=== PATIENT | female | born 1990 | race Caucasian/White ===

== ENCOUNTER 2017-11-18 17:58 | Emergency (ER) | payer BC ==
--- NOTE | 2017-11-18 18:34 | EDM.PDOC ---
<Hardik Stallings - Last Filed: 11/18/17 19:00> ED HPI GENERAL MEDICAL PROBLEM - General Stated Complaint: HI HEART RATE [id number] Time Seen by Provider: 11/18/17 18:20 Source of Information: Reports: Patient History Limitations: Reports: No Limitations - History of Present Illness INITIAL COMMENTS - FREE TEXT/NARRATIVE: This 27 yo female patient reports to the ED due to an episode of tachycardia. The patient reports she was wearing her apple watch and realized that her heartrate was 190. The patient reports when her heartrate was elevated she was also feeling lightheaded and a little dizzy. The patient reports she does have a history of anxiety with previous similar episodes in the past. The patient reports she was worked up for similar episodes while she was at [facility] in [place]. The patient reports she is also experiencing some heaviness in her left arm. The patient reports she does use caffeine, but has not had any recent nicotine, drugs or ETOH. Onset: Today Duration: Minutes:, Improving Location: Reports: Chest, Upper Extremity, Left Quality: Reports: Dull Severity: Moderate Worsens with: Reports: None Associated Symptoms: Reports: Other - Related Data Allergies Allergy/AdvReac Type Severity Reaction Status Date / Time amoxicillin trihydrate Allergy Intermediate Hyperactivi Verified 11/18/17 18:41 [From Augmentin] ty potassium clavulanate Allergy Hyperactivi Verified 11/18/17 18:41 [From Augmentin] ty coconut AdvReac Mild Nausea and Verified 11/18/17 18:41 Vomiting Home Meds: Home Meds Sulfamethoxazole/Trimethoprim [Sulfamethoxazole-Tmp Ds Tablet] 1 tab PO BID [History] Past Medical History HEENT History: Reports: None Cardiovascular History: Reports: None Respiratory History: Reports: None Gastrointestinal History: Reports: None Genitourinary History: Reports: None 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: , 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 Musculoskeletal History: Reports: None Neurological History: Reports: None Psychiatric History: Reports: Anxiety, PTSD Endocrine/Metabolic History: Reports: None Hematologic History: Reports: None Immunologic History: Reports: None Dermatologic History: Reports: None - Infectious Disease History Infectious Disease History: Reports: Chicken Pox - Past Surgical History HEENT Surgical History: Reports: Adenoidectomy, Tonsillectomy Social & Family History - Family History Family Medical History: Noncontributory - Tobacco Use Smoking Status *Q: Former Smoker Packs/Tins Daily: 0.1 Used Tobacco, but Quit: Yes Month Tobacco Last Used: n - Recreational Drug Use Recreational Drug Use: No ED ROS GENERAL - Review of Systems Review Of Systems: ROS reveals no pertinent complaints other than HPI. ED EXAM, GENERAL - Physical Exam Exam: See Below Exam Limited By: No Limitations General Appearance: Alert, WD/WN, Anxious, Mild Distress Eye Exam: Bilateral Eye: EOMI, Normal Inspection, PERRL Ears: Normal External Exam, Normal Canal, Hearing Grossly Normal, Normal TMs Nose: Normal Inspection, Normal Mucosa, No Blood Throat/Mouth: Normal Inspection, Normal Lips, Normal Teeth, Normal Gums, Normal Oropharynx, Normal Voice, No Airway Compromise Head: Atraumatic, Normocephalic Neck: Normal Inspection, Supple, Non-Tender, Full Range of Motion Respiratory/Chest: No Respiratory Distress, Lungs Clear, Normal Breath Sounds, No Accessory Muscle Use, Chest Non-Tender Cardiovascular: Normal Peripheral Pulses, Regular Rate, Rhythm, No Edema, No Gallop, No JVD, No Murmur, No Rub GI/Abdominal: Normal Bowel Sounds, Soft, Non-Tender, No Organomegaly, No Distention, No Abnormal Bruit, No Mass (Female) Exam: Deferred Rectal (Female) Exam: Deferred Back Exam: Normal Inspection, Full Range of Motion, NT Extremities: Normal Inspection, Normal Range of Motion, Non-Tender, Normal Capillary Refill, No Pedal Edema Neurological: Alert, Oriented, CN II-XII Intact, Normal Cognition, Normal Gait, Normal Reflexes, No Motor/Sensory Deficits Psychiatric: Anxious Skin Exam: Warm, Dry, Intact, Normal Color, No Rash Lymphatic: No Adenopathy Course - Vital Signs Last Recorded V/S: Last Vital Signs Temp 99.5 F 11/18/17 20:35 Pulse 82 11/18/17 20:35 Resp 20 11/18/17 20:35 BP 112/85 11/18/17 20:35 Pulse Ox 100 11/18/17 20:35 - Orders/Labs/Meds Orders: Active Orders 24 hr Category Date Time Status EKG Documentation Completion [RC] URGENT Care 11/18/17 18:00 Active Labs: Laboratory Tests 01/23/18 01/23/18 01/23/18 Range/Units 18:14 18:14 18:36 WBC 7.8 (5.0-10.0) 10^3/uL RBC 3.69 L (4.2-5.4) 10^6/uL Hgb 12.0 (12.0-16.0) g/dL Hct 33.6 L (37.0-47.0) % MCV 91.1 D (80-100) fL MCH 32.5 (27.0-34.0) pg MCHC 35.7 H (33.0-35.0) g/dL Plt Count 288 (150-450) 10^3/uL Neut % (Auto) 53.2 (42.2-75.2) % Lymph % (Auto) 37.8 (20.5-50.1) % [place] % (Auto) 6.8 (2-8) % Eos % (Auto) 1.9 (1.0-3.0) % Baso % (Auto) 0.3 (0.0-1.0) % Sodium 137 (135-145) mmol/L Potassium 2.7 L (3.6-5.0) mmol/L Chloride 108 (101-111) mmol/L Carbon Dioxide 22.0 (21.0-31.0) mmol/L Anion Gap 9.7 BUN 10 (7-18) mg/dL Creatinine 0.9 (0.6-1.3) mg/dL Est Cr Clr Drug Dosing TNP Estimated GFR (MDRD) > 60 BUN/Creatinine Ratio 11.11 Glucose 117 H (74-105) mg/dL Calcium 9.2 (8.4-10.2) mg/dl Total Bilirubin 0.6 (0.2-1.0) mg/dL AST 24 (10-42) IU/L ALT 18 (10-60) IU/L Alkaline Phosphatase 28 L (42-121) IU/L Troponin I < 0.02 (0.00-0.02) ng/ml Total Protein 7.9 (6.7-8.2) g/dl Albumin 4.9 (3.2-5.5) g/dl Globulin 3.0 Albumin/Globulin Ratio 1.63 Urine Color (YELLOW) Urine Appearance (CLEAR) Urine pH (5.0-9.0) Ur Specific [place] (1.005-1.030) Urine Protein (NEGATIVE) Urine Glucose (UA) (NEGATIVE) Urine Ketones (NEGATIVE) Urine Occult Blood (NEGATIVE) Urine Nitrite (NEGATIVE) Urine Bilirubin (NEGATIVE) Urine Urobilinogen (0.2-1.0) mg/dL Ur Leukocyte Esterase (NEGATIVE) Urine RBC /HPF Urine WBC (0-5/HPF) /HPF Ur Epithelial Cells /HPF Urine Bacteria (0-FEW/HPF) /HPF Urine Mucus /LPF Urine HCG, Qual Urine Opiates Screen Negative (NEGATIVE) Ur Oxycodone Screen Negative (NEGATIVE) Urine Methadone Screen Negative (NEGATIVE) Ur Barbiturates Screen Negative (NEGATIVE) U Tricyclic Antidepress Negative (NEGATIVE) Ur Phencyclidine Scrn Negative (NEGATIVE) Ur Amphetamine Screen Negative (NEGATIVE) U Methamphetamines Scrn Negative (NEGATIVE) Urine MDMA Screen Negative (NEGATIVE) U Benzodiazepines Scrn Positive H (NEGATIVE) Urine Cocaine Screen Negative (NEGATIVE) U Marijuana (THC) Screen Positive H (NEGATIVE) 11/18/17 11/18/17 Range/Units 18:36 18:36 WBC (5.0-10.0) 10^3/uL RBC (4.2-5.4) 10^6/uL Hgb (12.0-16.0) g/dL Hct (37.0-47.0) % MCV (80-100) fL MCH (27.0-34.0) pg MCHC (33.0-35.0) g/dL Plt Count (150-450) 10^3/uL Neut % (Auto) (42.2-75.2) % Lymph % (Auto) (20.5-50.1) % [place] % (Auto) (2-8) % Eos % (Auto) (1.0-3.0) % Baso % (Auto) (0.0-1.0) % Sodium (135-145) mmol/L Potassium (3.6-5.0) mmol/L Chloride (101-111) mmol/L Carbon Dioxide (21.0-31.0) mmol/L Anion Gap BUN (7-18) mg/dL Creatinine (0.6-1.3) mg/dL Est Cr Clr Drug Dosing Estimated GFR (MDRD) BUN/Creatinine Ratio Glucose (74-105) mg/dL Calcium (8.4-10.2) mg/dl Total Bilirubin (0.2-1.0) mg/dL AST (10-42) IU/L ALT (10-60) IU/L Alkaline Phosphatase (42-121) IU/L Troponin I (0.00-0.02) ng/ml Total Protein (6.7-8.2) g/dl Albumin (3.2-5.5) g/dl Globulin Albumin/Globulin Ratio Urine Color Yellow (YELLOW) Urine Appearance Clear (CLEAR) Urine pH 6.0 (5.0-9.0) Ur Specific [place] 1.015 (1.005-1.030) Urine Protein Negative (NEGATIVE) Urine Glucose (UA) Negative (NEGATIVE) Urine Ketones Trace H (NEGATIVE) Urine Occult Blood Negative (NEGATIVE) Urine Nitrite Negative (NEGATIVE) Urine Bilirubin Negative (NEGATIVE) Urine Urobilinogen 1.0 (0.2-1.0) mg/dL Ur Leukocyte Esterase Trace H (NEGATIVE) Urine RBC 0-5 /HPF Urine WBC 0-5 (0-5/HPF) /HPF Ur Epithelial Cells Rare /HPF Urine Bacteria Rare (0-FEW/HPF) /HPF Urine Mucus Rare /LPF Urine HCG, Qual Negative Urine Opiates Screen (NEGATIVE) Ur Oxycodone Screen (NEGATIVE) Urine Methadone Screen (NEGATIVE) Ur Barbiturates Screen (NEGATIVE) U Tricyclic Antidepress (NEGATIVE) Ur Phencyclidine Scrn (NEGATIVE) Ur Amphetamine Screen (NEGATIVE) U Methamphetamines Scrn (NEGATIVE) Urine MDMA Screen (NEGATIVE) U Benzodiazepines Scrn (NEGATIVE) Urine Cocaine Screen (NEGATIVE) U Marijuana (THC) Screen (NEGATIVE) Meds: Medications Discontinued Medications Generic Name Dose Route Start Last Admin Trade Name Omer PRN Reason Stop Dose Admin Potassium Chloride 10 meq/ 100 mls @ 100 mls/hr 11/18/17 18:42 11/18/17 19:18 Premix IV 11/18/17 19:41 100 mls/hr ONETIME ONE Administration Sodium Chloride 1,000 mls @ 999 mls/hr 11/18/17 19:09 11/18/17 19:18 Normal Saline IV 11/18/17 20:09 999 mls/hr .BOLUS ONE Administration Potassium Chloride 40 meq 11/18/17 18:43 11/18/17 19:16 Klor-Con 10 PO 11/18/17 18:44 40 meq ONETIME ONE Administration Departure - Departure Disposition: Home, Self-Care 01 Condition: Fair Clinical Impression: Hypokalemia, Palpitations Instructions: Hypokalemia, Palpitations, [id number] Forms: ED Department Discharge Care Plan Goals: The patient was advised of the examination, lab and EKG results during the visit. The patient was given an oral and IV dose of potassium while in the emergency department. The patient was encouraged to follow-up with her primary care facility. If the patient has any additional symptoms or concerns, the patient should either visit her primary care facility or return to the emergency department. <Alondra Cantu - Last Filed: 11/19/17 06:48> Departure - Departure Time of Disposition: 20:35
[2017-11-18 18:41] LABS: ANION GAP 9.7; CHLORIDE,CL 108 mmol/L (101-111); SODIUM,NA 137 mmol/L (135-145)
[2017-11-18] MEDS ORDERED: Potassium Chloride 10 MEQ in Premix Bag 1 BAG IV ONE (18:42)
[2017-11-18] MEDS ORDERED: Potassium Chloride 10 MEQ Tab.ER PO ONE (18:43)
[2017-11-18] MEDS ORDERED: Sodium Chloride 0.9% 1,000 ML IV ONE (19:09)
[2017-11-18 20:56] VITALS: BP 112/85
--- NOTE | 2017-12-15 10:49 | EKG ---
11/18/2017- GEOFFREY PHILLIPS M - EKG is sinus rhythm with a rate of 129. Normal VA interval, normal axis. There are nonspecific ST-T wave changes on the lateral leads. EKG otherwise within normal limits. [facility] /[id number]
== END 2017-11-18 20:38 | disposition home or self-care (01) ==
LOC: DL.ED 17:58
DX: E87.6 Hypokalemia (principal); R00.2 Palpitations; Z88.1 Allergy status to other antibiotic agents; Z88.8 Allergy status to other drugs, medicaments and biological substances; Z87.891 Personal history of nicotine dependence
CPT/HCPCS: 36415; 80053; 80305; 81001; 81025; 84484; 85025; 93005; 96365; 99284; A9270; J3480; J7030

== ENCOUNTER 2018-12-15 21:35 | Emergency (ER) | payer BC ==
[2018-12-15 21:43] VITALS: BP 132/92
[2018-12-15 22:33] LABS: ANION GAP 11.5; CHLORIDE,CL 102 mmol/L (101-111); SODIUM,NA 136 mmol/L (135-145)
--- NOTE | 2018-12-15 23:34 | EDM.PDOC ---
ED HPI GENERAL MEDICAL PROBLEM - General Chief Complaint: Chest Pain Stated Complaint: CHEST PAINS, LAYING DOWN-HEAVINESS Time Seen by Provider: 12/15/18 21:40 Source of Information: Reports: Patient History Limitations: Reports: No Limitations - History of Present Illness INITIAL COMMENTS - FREE TEXT/NARRATIVE: ED with c/o left side chest pain since Friday, worse with ovement and deep breathing, No injury. Occasional cough. Non smoker, No hx of asthma. No fever or chills. States initially thought related to anxiety or GERD. Has been taking anxiety medication and zantac without relief. Was seen at clinic today and told pleurisy and started on Naproxyn. First dose at 1900, without improvement. Left Chest Pain Score (Numeric/FACES): 5 - Related Data Allergies Allergy/AdvReac Type Severity Reaction Status Date / Time amoxicillin trihydrate Allergy Intermediate Hyperactivi Verified 12/15/18 21:44 [From Augmentin] ty potassium clavulanate Allergy Hyperactivi Verified 12/15/18 21:44 [From Augmentin] ty coconut AdvReac Mild Nausea and Verified 12/15/18 21:44 Vomiting Home Meds: Home Meds LORazepam 1 mg PO ASDIRECTED PRN 12/15/18 [History] Past Medical History HEENT History: Reports: None Cardiovascular History: Reports: None Respiratory History: Reports: None Gastrointestinal History: Reports: GERD Genitourinary History: Reports: None 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: , 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 Musculoskeletal History: Reports: None Neurological History: Reports: None Psychiatric History: Reports: Anxiety, PTSD Endocrine/Metabolic History: Reports: None Hematologic History: Reports: None Immunologic History: Reports: None Dermatologic History: Reports: None - Infectious Disease History Infectious Disease History: Reports: Chicken Pox - Past Surgical History HEENT Surgical History: Reports: Adenoidectomy, Tonsillectomy Social & Family History - Family History Family Medical History: Noncontributory - Tobacco Use Smoking Status *Q: Never Smoker Second Hand Smoke Exposure: No - Recreational Drug Use Recreational Drug Use: No ED ROS GENERAL - Review of Systems Review Of Systems: ROS reveals no pertinent complaints other than HPI. ED EXAM, GENERAL - Physical Exam Exam: See Below Exam Limited By: No Limitations General Appearance: Alert, Mild Distress Eye Exam: Bilateral Eye: EOMI, PERRL Ears: Hearing Grossly Normal Nose: Normal Inspection Throat/Mouth: Normal Inspection, Normal Lips, Normal Voice Neck: Normal Inspection, Full Range of Motion. No: Lymphadenopathy (L), Lymphadenopathy (R) Respiratory/Chest: Lungs Clear, Normal Breath Sounds, No Accessory Muscle Use, Other (left lateral chest tender with light palpation, mild left anterior). No : Rales, Rhonchi, Wheezing Cardiovascular: Normal Peripheral Pulses, Regular Rate, Rhythm GI/Abdominal: Normal Bowel Sounds, Soft Back Exam: Full Range of Motion Extremities: Normal Inspection Neurological: Alert, Oriented, Normal Cognition Psychiatric: Normal Affect, Anxious ([facility]) Skin Exam: Warm, Dry, Intact, Normal Color, No Rash EKG INTERPRETATION Rhythm: NSR Course - Vital Signs Last Recorded V/S: Last Vital Signs Temp 96.4 F 12/15/18 21:38 Pulse 93 12/15/18 21:38 Resp 18 12/15/18 21:38 BP 132/92 H 12/15/18 21:38 Pulse Ox 100 12/15/18 21:38 - Orders/Labs/Meds Orders: Active Orders 24 hr Category Date Time Status EKG 12 Lead [EKG Documentation Completion] [RC] STAT Care 12/15/18 21:48 Active CXR [Chest 2V] [CR] Urgent Exams 12/15/18 22:49 Taken Labs: Laboratory Tests 12/15/18 12/15/18 12/15/18 Range/Units 22:01 22:01 22:01 WBC 8.6 (5.0-10.0) 10^3/uL RBC 3.71 L (4.2-5.4) 10^6/uL Hgb 12.0 (12.0-16.0) g/dL Hct 34.7 L (37.0-47.0) % MCV 93.5 (80-100) fL MCH 32.3 (27.0-34.0) pg MCHC 34.6 (33.0-35.0) g/dL Plt Count 253 (150-450) 10^3/uL Neut % (Auto) 61.8 (42.2-75.2) % Lymph % (Auto) 28.7 (20.5-50.1) % [place] % (Auto) 6.5 (2-8) % Eos % (Auto) 2.8 (1.0-3.0) % Baso % (Auto) 0.2 (0.0-1.0) % Sodium 136 (135-145) mmol/L Potassium 3.5 L (3.6-5.0) mmol/L Chloride 102 (101-111) mmol/L Carbon Dioxide 26.0 (21.0-31.0) mmol/L Anion Gap 11.5 BUN 9 (7-18) mg/dL Creatinine 0.7 (0.6-1.3) mg/dL Est Cr Clr Drug Dosing 122.81 mL/min Estimated GFR (MDRD) > 60 BUN/Creatinine Ratio 12.85 Glucose 91 (74-105) mg/dL Calcium 8.8 (8.4-10.2) mg/dl Total Bilirubin 0.6 (0.2-1.0) mg/dL AST 25 (10-42) IU/L ALT 21 (10-60) IU/L Alkaline Phosphatase 29 L (42-121) IU/L Troponin I < 0.02 (0.00-0.02) ng/ml Total Protein 7.5 (6.7-8.2) g/dl Albumin 4.3 (3.2-5.5) g/dl Globulin 3.2 Albumin/Globulin Ratio 1.34 TSH, Ultra Sensitive 2.60 (0.45-5.33) uIu/mL HCG, Qual Negative - Radiology Interpretation Free Text/Narrative:: Name: GEOFFREY PHILLIPS Age: 28Years F Date: 12/15/2018 SSN: -- : [id number] Study: XR CHEST 2 VIEWS Requesting Physician: MIKEY GAMEZ Images: 2 Addl Studies: Provided Clinical History: Contrast: Contrast Medium: Contrast Amount: Contrast Method: CONFIDENTIALITY STATEMENT This report is intended only for use by the referring physician, and only in accordance with law. If you received this in error, call [phone]. Page 1 of 1 EXAM: XR Chest, 2 Views EXAM DATE/TIME: 12/15/2018 10:51 PM CLINICAL HISTORY: 28 years old, female; Pain and signs and symptoms; Cough; Chest wall pain; Patient HX: Cough lt chest pain TECHNIQUE: XR of the chest, 2 views. COMPARISON: No relevant prior studies available. FINDINGS: Lungs: Unremarkable. No consolidation. Pleural space: Unremarkable. No evidence of pneumothorax. Heart/Mediastinum: Unremarkable. Heart size within normal limits for technique. Bones/joints: Unremarkable. IMPRESSION: No acute findings. Thank you for allowing us to participate in the care of your patient. Dictated and Authenticated by: Dinesh Frank MD 12/15/2018 11:23 PM Central Time ([place] & [place] Departure - Departure Time of Disposition: 23:30 Disposition: Home, Self-Care 01 Condition: Good Clinical Impression: Costochondral chest pain - Discharge Information *PRESCRIPTION DRUG MONITORING PROGRAM REVIEWED*: No *COPY OF PRESCRIPTION DRUG MONITORING REPORT IN PATIENT MORGAN: No Instructions: Costochondritis, [id number] Referrals: India Lanza NP [Primary Care Provider] - Forms: ED Department Discharge Additional Instructions: Naproxen 500mg every 12 hours, take with food warm pack to chest clinic follow up friday - My Orders Last 24 Hours: My Active Orders 12/15/18 21:48 EKG 12 Lead [EKG Documentation Completion] [RC] STAT 12/15/18 22:49 CXR [Chest 2V] [CR] Urgent - Assessment/Plan Last 24 Hours: My Active Orders 12/15/18 21:48 EKG 12 Lead [EKG Documentation Completion] [RC] STAT 12/15/18 22:49 CXR [Chest 2V] [CR] Urgent
== END 2018-12-15 23:38 | disposition home or self-care (01) ==
LOC: DL.ED 21:35
DX: R07.1 Chest pain on breathing (principal); Z88.1 Allergy status to other antibiotic agents; Z91.018 Allergy to other foods
CPT/HCPCS: 36415; 71046; 80053; 84443; 84484; 84703; 85025; 93005; 99285